=== PATIENT | male | born 1975 | race Caucasian/White ===

== ENCOUNTER → 2020-08-12 | Outpatient (CLI) | payer BC, OTHER ==
[~2020-08-12] MED LIST: ALLER-TEC D 5-1 EACH PO; CARDURA4 MG PO; CLINDAMYCIN HC300 MG PO; NORCO 7.5-3251 EACH PO; PREDNISONE20 MG PO; PROBIOTIC1 EACH PO
== END ==
LOC: KOH-I 10:00
DX: J33.9 Nasal polyp, unspecified (principal); J32.0 Chronic maxillary sinusitis
CPT/HCPCS: 70486

== ENCOUNTER → 2021-04-13 | Outpatient (CLI) | payer BC | LOC: NM 08:08 | DX: E05.90 Thyrotoxicosis, unspecified without thyrotoxic crisis or storm (principal) | CPT/HCPCS: 78012; A9516 ==